=== PATIENT | male | born 1965 | race Caucasian/White ===

== ENCOUNTER 2018-04-07 13:28 | Observation (INO) | payer OTHER, SELFPAY ==
[2018-04-07 14:17] LABS: #Eosinphils 0.3 thou/uL (0.0-0.7); #Monocytes 0.7 thou/uL (0.11-0.59); #Neutrophils 8.6 thou/uL (1.40-6.50); %Basophils 0.4 % (0.0-1.0); %Eosinophils 2.6 % (0.0-10.0); %Lymphocytes 9.5 % (21.0-51.0); %Monocytes 6.9 % (0.0-10.0); %Neutrophils 80.6 % (42.0-75.0); Mean Corpuscular HGB CONC 33.4 g/dL (32.0-36.0); Mean Corpuscular Volume 92.9 fL (78.0-98.0); Mean Platelet Volume 8.4 fL (7.4-10.4); Platelet Count 220 thou/uL (130-400); RBC Distribution Width 12.6 % (11.5-14.5); Red Blood Cell (RBC) Count 4.85 mill/uL (4.70-6.10); White Blood Cell (WBC) Count 10.7 thou/uL (4.8-10.8)
[2018-04-07 14:41] LABS: ALT (SGPT) 22 U/L (8-55); AST (SGOT) 24 U/L (5-34); Albumin 3.9 g/dL (3.5-5.0); Alkaline Phosphatase 105 U/L (40-150); Anion Gap 12 mmol/L (10-20); BUN (Urea Nitrogen) 24 mg/dL (8.4-25.7); Bilirubin, Total 0.7 mg/dL (0.2-1.2); Calc. Creatinine Clearance 0 mL/min (70-130); Calcium 8.6 mg/dL (7.8-10.44); Carbon Dioxide 24 mmol/L (22-29); Chloride 106 mmol/L (98-107); Estimated GFR-MDRD 39; Globulin 2.8 g/dL (2.4-3.5); Glucose 92 mg/dL (70-105); Potassium 4.3 mmol/L (3.5-5.1); Protein, Total 6.7 g/dL (6.0-8.3); Sodium 138 mmol/L (136-145)
[2018-04-07 14:45] LABS: CKMB 1.4 ng/mL (0-6.6); Troponin I Less than 0.010 ng/mL (< 0.028)
--- NOTE | 2018-04-07 14:51 | CT ---
HEAD CT WITHOUT CONTRAST: Date: 04/07/18 HISTORY: Syncope. COMPARISON: 10/25/10. FINDINGS: No parenchymal hemorrhage. No extra-axial hematoma. No midline shift. Basilar cisterns are patent. Br ain volume, less than expected for patient's age. Stable hypodensities involving the left and right f rontal subcortical, deep, and periventricular white matter. Stable configuration of the ventricular s ystem. Cortical alex-white matter differentiation is preserved. Calvarium is intact. Adequate aeratio n of the sinuses and mastoid air cells. IMPRESSION: 1. No acute intracranial process. 2. Stable hypodensities involving the bifrontal white matter. POS: [facility]
--- NOTE | 2018-04-07 15:14 | RAD ---
PORTABLE CHEST: Date: 04/07/18 HISTORY: Chest pain. COMPARISON: 10/22/10. FINDINGS: Heart size is within normal limits considering portable technique. Aorta is mildly tortuous. The lung s are clear of any infiltrative process. There are no signs of failure. Postoperative changes of the cervical spine are seen. IMPRESSION: No active intrathoracic disease. POS: [facility]
[2018-04-07] MEDS ORDERED: Ondansetron ODT 4 MG TAB PO PRN (15:37)
[2018-04-07] MEDS ORDERED: Acetaminophen 325 MG TAB PO PRN (15:37)
--- NOTE | 2018-04-07 15:50 | PDOC.FPRHP ---
- History of Present Illness Chief Complaint: chest pain, syncopal event History of Present Illness: Patient is a 52yo M with PMH of HTN, CAD, CKD3, HLD, and CVA (2009) who presents to ED via EMS for syncopal event. Around 10am he started feeling bad with a posterior ROMEO then developed substernal chest tightness associated with diaphoresis and SOB. He walked out to his car to get his Nitro tabs but remembers feeling somewhat dizzy and then awakened on the ground. He called a work friend who called EMS. He reports feeling bad for about a week after PCP made some medication changes, with dizziness and blurred vision. He cannot recall the medications but on chart review, it appears he was given Cipro for UTI, Atorvastatin, and an increase in his Gabapentin. He does endorse some exertional angina symptoms that have been happening for >1 month. He has never had a cath per patient hx, but sees Dr. Mason and has had echo's which have showed LVH. In route, he was given Nitro that improved his pain. - Allergies/Adverse Reactions Allergies Allergy/AdvReac Type Severity Reaction Status Date / Time No Known Allergies Allergy Unverified 09/07/14 10:19 - Home Medications Medication Instructions Recorded Confirmed Type Atenolol [Tenormin] 100 mg PO BID 09/07/14 04/07/18 History Hydrocodone Bit/Acetaminophen 1 - 2 tab PO Q4H PRN 09/07/14 04/07/18 History [HYDROcodone Bit/Acetaminophen] hydrALAZINE HCl [Apresoline] 50 mg PO TID 09/07/14 04/07/18 History Amlodipine [Norvasc] 5 mg PO DAILY #0 tab 09/15/14 04/07/18 Rx Atorvastatin Calcium [Lipitor] 20 mg PO HS 04/07/18 04/07/18 History Gabapentin [Neurontin] 300 mg PO BID 04/07/18 04/07/18 History - History PMHx: 1. CAD 2. Hx CVA (2009) 3. HTN 4. Tobacco Abuse 5. CKD3 PSHx: 1. Neck Surgery FHx: Brother at age 34yo from ruptured brain aneurysm. Dad of unk cancer. 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 Dips tobacco. Denies etoh and drug use. - Review of Systems General: denies: fever/chills, weight/appetite/sleep changes, night sweats Eyes: reports: vision changes ENT: denies: nasal congestion, rhinorrhea Respiratory: reports: shortness of breath. denies: cough, congestion Cardiovascular: reports: chest pain. denies: palpitation, edema, paroxysmal nocturnal dyspnea, orthopnea Gastrointestinal: reports: constipation. denies: nausea, vomiting, diarrhea, abdominal pain Genitourinary: denies: incontinence, dysuria Skin: denies: rashes, lesions Musculoskeletal: reports: pain (ROMEO). denies: swelling Neurological: reports: syncope. denies: numbness Psychological: denies: anxiety, depression - Vital signs BP: 137/78 HR: 56 RR: 18 Tmax: 98.0 Pox: 97% on RA Wt: 111kg - Physical Exam Constitutional: NAD, awake, alert and oriented HEENT: normocephalic and atraumatic, PERRLA, EOMI, conjunctiva clear, no scleral icterus Neck: no bruits Chest: no-tender to palpation, no lesions Heart: normal S1/S2, no murmurs/rubs/gallops, pulses present, no edema -Heart: bradycardic with rate of 50's Lungs: CTAB, no respiratory distress, good air movement Abdomen: soft, non-tender, bowel sounds present Musculoskeletal: normal structure, normal tone Neurological: no focal deficit Skin: no rash/lesions, capillary refill <2 seconds Heme/Lymphatic: no unusual bruising or bleeding Psychiatric: normal mood and affect, good judgment and insight, intact recent and remote memory FMR H&P: Results - Labs Result Diagrams: 04/07/18 14:09 04/07/18 14:09 Lab results: WBC 10.7 thou/uL (4.8-10.8) 04/07/18 14:09 Hgb 15.0 g/dL (14.0-18.0) 04/07/18 14:09 Hct 45.1 % (42.0-52.0) 04/07/18 14:09 MCV 92.9 fL (78.0-98.0) 04/07/18 14:09 Plt Count 220 thou/uL (130-400) 04/07/18 14:09 Neutrophils % 80.6 % (42.0-75.0) H 04/07/18 14:09 Sodium 138 mmol/L (136-145) 04/07/18 14:09 Potassium 4.3 mmol/L (3.5-5.1) 04/07/18 14:09 Chloride 106 mmol/L (98-107) 04/07/18 14:09 Carbon Dioxide 24 mmol/L (22-29) 04/07/18 14:09 BUN 24 mg/dL (8.4-25.7) 04/07/18 14:09 Creatinine 1.81 mg/dL (0.6-1.3) H 04/07/18 14:09 Glucose 92 mg/dL (70-105) 04/07/18 14:09 Calcium 8.6 mg/dL (7.8-10.44) 04/07/18 14:09 Total Bilirubin 0.7 mg/dL (0.2-1.2) 04/07/18 14:09 AST 24 U/L (5-34) 04/07/18 14:09 ALT 22 U/L (8-55) 04/07/18 14:09 Alkaline Phosphatase 105 U/L (40-150) 04/07/18 14:09 CK-MB (CK-2) 1.4 ng/mL (0-6.6) 04/07/18 14:09 Serum Total Protein 6.7 g/dL (6.0-8.3) 04/07/18 14:09 Albumin 3.9 g/dL (3.5-5.0) 04/07/18 14:09 - EKG Interpretation EKG: T wave inversions in lead V4-V6 - Radiology Interpretation Chest x-ray Status: image reviewed by me, report reviewed by me Additional comment: No acute findings CT scan - head Status: image reviewed by me, report reviewed by me Additional comment: CTbrain without acute hemorrhage or mass effect. Evidence of old CVA present. FMR H&P: A/P - Problem List (1) Syncope Current Visit: Yes Status: Acute Code(s): R55 - SYNCOPE AND COLLAPSE (2) Chest pain Current Visit: Yes Status: Acute Code(s): R07.9 - CHEST PAIN, UNSPECIFIED (3) Exertional angina Current Visit: Yes Status: Acute Code(s): I20.8 - OTHER FORMS OF ANGINA PECTORIS (4) Hypertension Current Visit: Yes Status: Acute Code(s): I10 - ESSENTIAL (PRIMARY) HYPERTENSION (5) CAD (coronary artery disease) Current Visit: Yes Status: Acute Code(s): I25.10 - ATHSCL HEART DISEASE OF [place] CORONARY ARTERY W/O ANG PCTRS (6) HLD (hyperlipidemia) Current Visit: Yes Status: Acute Code(s): E78.5 - HYPERLIPIDEMIA, UNSPECIFIED (7) History of CVA (cerebrovascular accident) Current Visit: Yes Status: Acute Code(s): Z86.73 - PRSNL HX OF TIA (TIA), AND CEREB INFRC W/O RESID DEFICITS - Plan Typical Chest Pain - Substernal chest pain associated with sob and diaphoresis relieved by Nitro. Established care with Dr. Mason. Have let her know the patient is here. No prior stress test on file. Will do stress test in AM. NPO at MN. Hold BB this evening. Initial troponin is negative, continue to trend. EKG with T wave inversions in lead v4-v6. Syncope - Reports dizziness for 1 week. Ddx includes CAD vs arrhythmia vs medication side effect. Will monitor on tele and dc Cipro use. Bradycardic at the time of evaluation, this may be contributing. HTN - Will restart hydralazine and amlodipine. Hold BB for stress tomorrow. Recent E. Coli UTI - Dx 7 days ago. Likely patient had adequate tx with cipro. Not reporting sx at this time. EDGARDO on CKD3 - Could be associated with Cipro use. Will PO hydrate and repeat BMP tomorrow. - avoid nephrotoxic agents. HLD - Continue home statin Chronic Back Pain - continue home [place] prn pain. DVT PPx: SCD GI PPx: none IVF: SL Code Status: Full PCP: MARICHUY Newell FMR H&P: Upper Level - Plan Date/Time: 04/07/18 1503 I, [], have evaluated this patient and agree with findings/plan as outlined by commercial intern resident. Pertinent changes/additions are listed here.
[2018-04-07] MEDS ORDERED: HYDROcodone/Acetaminophen 10/325 mg Tablet PO PRN (16:48)
[2018-04-07] MEDS ORDERED: Nitroglycerin 0.4 MG TAB (25 Tab Bottle) SL PRN (16:54)
[2018-04-07] MEDS ORDERED: hydrALAZINE 20 MG/ML VIAL SLOW IVP PRN (17:00)
[2018-04-07 17:42] LABS: Troponin I Less than 0.010 ng/mL (< 0.028)
[2018-04-07 18:48] VITALS: BMI 34.9
[2018-04-07] MEDS: hydrALAZINE 25 MG TAB PO SCH (20:25)
[2018-04-07] MEDS ORDERED: Gabapentin 300 MG CAP PO SCH (21:00)
[2018-04-07] MEDS ORDERED: Atorvastatin Calcium 20 MG TAB PO SCH (21:00)
--- NOTE | 2018-04-07 22:06 | HP ---
CHIEF COMPLAINT: Chest pain, syncope. HISTORY OF PRESENT ILLNESS: Mr. Johnie Rivera is a 52-year-old white male patient who presented to the emergency room having had a syncopal episode following an episode of chest pain at home. He was brou ght in by EMS and was given nitro en route with some resolution of his chest discomfort. He is curre ntly awake, alert, in no distress. PHYSICAL EXAMINATION: VITAL SIGNS: Blood pressure is 130/87, his pulse rate is 82 and regular, respirations 12, he is afeb rile. EARS, NOSE AND THROAT: No erythema or exudate. NECK: Supple. CARDIAC: Heart rhythm regular, no gallop or murmur noted. LUNGS: Clear, without rales or wheezes. ABDOMEN: Flat, soft, without guarding, rebound or rigidity. NEUROLOGIC: No focal deficits. LABORATORY DATA: White count 10,700, hemoglobin 15, hematocrit 45.1, with an MCV of 92.3. Chemistry : Sodium 138, potassium 4.3, chloride 106, bicarbonate 24, BUN 24, creatinine 1.81. Glucose was 92. EKG shows no acute ST segment changes. ASSESSMENT: Chest pain. PLAN: Admit. Will likely need at least stress Myoview and proceed.
[2018-04-08 05:31] LABS: Anion Gap 13 mmol/L (10-20); BUN (Urea Nitrogen) 23 mg/dL (8.4-25.7); Calc. Creatinine Clearance 89 mL/min (70-130); Calcium 8.4 mg/dL (7.8-10.44); Carbon Dioxide 26 mmol/L (22-29); Chloride 106 mmol/L (98-107); Estimated GFR-MDRD 47; Glucose 87 mg/dL (70-105); Sodium 141 mmol/L (136-145)
--- NOTE | 2018-04-08 06:15 | PDOC.FM ---
- Subjective Subjective: Patient complains of constipation this morning, says it has been 5 days since his last BM. Denies chest pain this morning. - Objective Vital Signs & Weight: Vital Signs (12 hours) Temp Pulse Resp BP BP Pulse Ox 04/08/18 03:55 98.2 F 74 16 121/74 94 L 04/07/18 23:12 98.5 F 84 18 108/56 L 93 L 04/07/18 20:25 71 132/65 04/07/18 19:24 98.4 F 76 18 132/65 97 04/07/18 18:37 98.0 F 81 20 124/61 97 Weight Weight 113.489 kg Result Diagrams: 04/07/18 14:09 04/08/18 04:07 Phys Exam - Physical Examination Constitutional: NAD HEENT: PERRLA, moist MMs Neck: no nodes, supple Respiratory: no wheezing, no rales, no rhonchi, clear to auscultation bilateral Cardiovascular: RRR, no significant murmur Gastrointestinal: soft, non-tender, no distention, positive bowel sounds Musculoskeletal: no edema, pulses present Neurological: moves all 4 limbs Rt sided weakness in RLE 4/5 dorsiflexion and plantarflexion Psychiatric: normal affect, A&O x 3 Skin: normal turgor, cap refill <2 seconds Dx/Plan (1) Syncope Code(s): R55 - SYNCOPE AND COLLAPSE Status: Acute (2) Exertional angina Code(s): I20.8 - OTHER FORMS OF ANGINA PECTORIS Status: Acute (3) Chest pain Code(s): R07.9 - CHEST PAIN, UNSPECIFIED Status: Acute (4) Constipation Code(s): K59.00 - CONSTIPATION, UNSPECIFIED Status: Acute (5) EDGARDO (acute kidney injury) Code(s): N17.9 - ACUTE KIDNEY FAILURE, UNSPECIFIED Status: Acute (6) CKD (chronic kidney disease) Code(s): N18.9 - CHRONIC KIDNEY DISEASE, UNSPECIFIED Status: Chronic (7) Chronic back pain Code(s): M54.9 - DORSALGIA, UNSPECIFIED; G89.29 - OTHER CHRONIC PAIN Status: Chronic (8) CAD (coronary artery disease) Code(s): I25.10 - ATHSCL HEART DISEASE OF [place] CORONARY ARTERY W/O ANG PCTRS Status: Chronic (9) HLD (hyperlipidemia) Code(s): E78.5 - HYPERLIPIDEMIA, UNSPECIFIED Status: Chronic (10) History of CVA (cerebrovascular accident) Code(s): Z86.73 - PRSNL HX OF TIA (TIA), AND CEREB INFRC W/O RESID DEFICITS Status: Chronic (11) Hypertension Code(s): I10 - ESSENTIAL (PRIMARY) HYPERTENSION Status: Chronic - Plan Plan: 52 yo M with PMH HTN, CVA (2009), NSTEMI (2009), LVH, CKD3 and CAD presents for typical chest pain and syncopal event 2/2 CAD vs arrhythmia vs iatrogenic Typical Chest Pain - Substernal chest pain associated with sob and diaphoresis relieved by Nitro. Established care with Dr. Mason. No prior stress test on file. - Stress test this AM. NPO since MN. - Held BB - Trop negx3 - EKG with T wave inversions in lead v4-v6. Syncope - Reports dizziness for 1 week. Ddx includes CAD vs arrhythmia vs medication side effect. - Monitor on tele. NSR overnight. - Bradycardic on presentation - Pt gives history of starting gabapentin 9 days ago, and having lightheadedness for last week. discontinued gabapentin HTN - Will restart hydralazine and amlodipine. Held BB for stress Constipation - No BM for past 5 days,. Enema this morning after stress - Start scheduled colace Recent E. Coli UTI - Dx 7 days ago. Likely patient had adequate tx with cipro. EDGARDO on CKD3 - Could be associated with Cipro use. PO hydrate. - avoid nephrotoxic agents. HLD - Continue home statin Chronic Back Pain - continue home [place] prn pain.
[2018-04-08] MEDS ORDERED: Aspirin 325 MG TAB PO SCH (09:00)
[2018-04-08] MEDS ORDERED: Docusate 100 MG CAP PO SCH (09:00)
[2018-04-08] MEDS ORDERED: Amlodipine 5 MG TAB PO SCH (09:00)
[2018-04-08] MEDS: hydrALAZINE 25 MG TAB PO SCH ×2 (09:51→15:46)
--- NOTE | 2018-04-08 11:52 | PRG ---
DATE OF SERVICE: 04/08/2018 This is an addendum to the note of Dr. Carmen Bowen. Mr. Rivera is resting quietly in bed in no distress. We are waiting his being sent for a stress Myovie w. On telemetry, he has had a few episodes of heart rate down to 48, which are asymptomatic. He had one episode of nonsustained 4 beat V-tach which was also asymptomatic. Given his syncope we will aissatou moya refer him to his algologist after discharge to see if she would like to do an event recorder. Other testing will be determined by the results of his stress Myoview test.
[2018-04-08 13:43] VITALS: TEMP 98.3
[2018-04-08] MEDS ORDERED: Fleet Enema 133 ML BOT PR SCH (14:45)
--- NOTE | 2018-04-08 15:18 | NM ---
MYOCARDIAL PERFUSION SCAN WITH SPECT IMAGING: HISTORY: Chest pain. Examination was performed using 29 mCi 99m Technetium sestamibi on the stress and 9 mCi on the restin g images. This shows a normal distribution of the radiopharmaceutical. No signs of ischemia or scar . WALL MOTION: There is symmetric contractility to the ventricle. LEFT VENTRICULAR EJECTION FRACTION: The calculated left ventricular ejection fraction was 65%. IMPRESSION: Unremarkable myocardial perfusion scan. POS: [facility]
[2018-04-08 15:41] VITALS: BP 168/79
--- NOTE | 2018-04-09 02:47 | DIS-2 ---
DATE OF ADMISSION: 04/07/2018 DATE OF DISCHARGE: 04/08/2018 ADMITTING ATTENDING: Dr. Noam Vicente. DISCHARGE ATTENDING: Dr. Noam Vicente. RESIDENT: Dr. Carmen Bowen. CONSULTATIONS: None. PROCEDURES: 1. On 04/07/2018, chest x-ray. Impression: No active intrathoracic disease. 2. On 04/07/2018, brain CT. Impression: No acute intracranial process. Stable hypodensities involving the bifrontal white matter. 3. On 04/08/2018, stress test nuclear medicine. Impression: Unremarkable myocardial perfusion scan, the calculated left ventricular ejection fraction was 65%. DISCHARGE MEDICATIONS: 1. Amlodipine 5 mg p.o. daily. 2. Atorvastatin 20 mg p.o. at bedtime. 3. Hydralazine 50 mg p.o. t.i.d. 4. Aspirin 81 mg p.o. daily. 5. Atenolol 100 mg p.o. b.i.d. 6. Docusate 100 mg p.o. b.i.d. p.r.n. for constipation. DISCONTINUED MEDICATIONS: Gabapentin 300 mg TID. PRIMARY DIAGNOSIS: Syncope SECONDARY DIAGNOSES: 1. Atypical Chest pain 2/2 suspected Anxiety 2. Hypertension. 3. Constipation. 4. Recent Escherichia coli urinary tract infection. 5. Acute kidney injury on chronic kidney disease, stage 3. 6. Hyperlipidemia. 7. Chronic back pain. HISTORY OF PRESENT ILLNESS AND HOSPITAL COURSE: The patient is a 52-year-old male with past medical history of hypertension; coronary artery disease; CKD, 3 ; hyperlipidemia; and cerebrovascular accident in 2009; who presented to the ED via EMS for a syncopal event. At around 10:00 a.m., he started feeling bad with posterior headache then developed substernal chest tightness associated with diaphoresis and shortness of breath. He walked out of his car to get his nitro tabs, but remembers feeling somewhat dizzy and then awakened on the ground. He called a workman, who called EMS. He reports feeling bad for about a week after the PCP made some medication changes, with dizziness and blurred vision. He cannot recall the medications, but on chart review, it appears he was given Cipro for UTI, atorvastatin, and increase in his gabapentin. He does endorse some exertional anginal symptoms that have been happening for greater than 1 month. He has never had a catheterization per patient history, but sees Dr. Mason and has had echos which have shown left ventricular hypertrophy. En route, he was given nitro that improved his pain. On the next day, a stress test was performed after beta blockers were held. The stress test was normal. His ejection fraction was 65%. His troponins were negative. His EKG showed T- wave inversions in lead V4 through V6. The patient has reported dizziness for one week. The differential includes coronary artery disease versus arrhythmia versus medication side effect. He was monitored on tele. They caught 1 episode of 4 beats of nonsustained ventricular tachycardia. He was bradycardic at the initial time of evaluation, this was thought to have possibly been contributing. He also had been on gabapentin for 1 week and that may have also contributed to his syncope and lightheaded feeling he has had for the past week. For his acute kidney injury on chronic kidney disease, stage 3, his creatinine improved from 1.81-1.54 with p.o. hydration. DISCHARGE CONDITION: Stable. DISCHARGE INSTRUCTIONS: 1. Disposition: Home. 2. Activity: No restrictions. 3. Diet: Heart healthy. 4. Referrals and Followup: Please follow up with your primary care provider, Dr. Horn in the next 7 days. Please follow up with Cardiology, Dr. Mason in the next 7 days. ZOILA
--- NOTE | 2018-04-10 12:26 | EKG ---
Test Reason : Blood Pressure : / mmHG Vent. Rate : 061 BPM Atrial Rate : 061 BPM P-R Int : 158 ms QRS Dur : 100 ms QT Int : 450 ms P-R-T Axes : 009 -09 117 degrees QTc Int : 453 ms Normal sinus rhythm Left ventricular hypertrophy with repolarization abnormality Abnormal ECG Confirmed by PEDRO ANGUIANO ([id number]), film editor ALEXUS HARDIN ([id number]) on 04/10/2018 12:26:45 PM Referred By: Confirmed By:PEDRO ANGUIANO
== END 2018-04-08 17:24 | disposition home or self-care (01) ==
LOC: ERS 13:28 → ERHOLD 15:49 → 2SW 18:19
PROVIDERS: ADMIT Family Medicine; ATTEND Family Medicine
DX: R55 Syncope and collapse (principal); R07.89 Other chest pain; I10 Essential (primary) hypertension; K59.00 Constipation, unspecified; I12.9 Hypertensive chronic kidney disease with stage 1 through stage 4 chronic kidney disease, or unspecified chronic kidney disease; N18.3 Chronic kidney disease, stage 3 (moderate); N17.9 Acute kidney failure, unspecified; Z79.82 Long term (current) use of aspirin; Z79.899 Other long term (current) drug therapy
CPT/HCPCS: 36415; 70450; 71045; 78452; 80048; 80053; 82553; 84484; 85025; 85379; 93005; 93017; 94760; A9500; G0378; J0153; Q0162

== ENCOUNTER 2022-11-10 08:35 | Outpatient (CLI) | payer BC | END 2022-11-10 08:36 | disposition home or self-care (01) | LOC: TBSIIMAG 08:35 | PROVIDERS: ATTEND Neurological Surgery | DX: M48.062 Spinal stenosis, lumbar region with neurogenic claudication (principal); R93.7 Abnormal findings on diagnostic imaging of other parts of musculoskeletal system | CPT/HCPCS: 72148 ==

== ENCOUNTER 2024-05-17 07:55 | Outpatient (CLI) | payer BC | END 2024-05-17 07:56 | disposition home or self-care (01) | LOC: BICULT 07:55 | PROVIDERS: ATTEND Nurse Practitioner Family | DX: I10 Essential (primary) hypertension (principal) | CPT/HCPCS: 76770; 93975 ==